=== PATIENT | female | born 1940 | race Two or more races ===

== ENCOUNTER 2025-05-01 14:01 | Outpatient (AMB) | payer SELFPAY ==
--- NOTE | 2025-05-01 14:18 | MHC.PC.OV ---
Intake Visit Reasons: new patient Coding Level of Care Code Est Pt Level 1 (28800) Diagnoses Upper respiratory tract infectious disease J06.9 Comment No billing. Assessment & Plan Assessment & Plan (1) Upper respiratory tract infectious disease: Code(s): J06.9 - Acute upper respiratory infection, unspecified Plan: Conversation with the patient on the telephone. A telephone encounter has been separately documented.
== END 2025-05-01 15:43 | disposition home or self-care (01) ==
PROVIDERS: PCP Internal Medicine; Visit Provider Internal Medicine
DX: J06.9 Acute upper respiratory infection, unspecified (principal)

== ENCOUNTER → 2025-05-01 14:01 | Outpatient (BNVA) | payer SELFPAY | PROVIDERS: PCP Internal Medicine; Visit Provider Internal Medicine | DX: J06.9 Acute upper respiratory infection, unspecified (principal) | CPT/HCPCS: 99211 ==